=== PATIENT | male | born 1960 | race American Indian/Alaskan Native ===

== ENCOUNTER 2019-10-13 07:31 | Day surgery (SDC) | payer BC ==
[2019-10-13] MEDS ORDERED: LIDOCAINE (1%) 10 MG/1 ML VIAL 20 ML MDV ONE (07:45)
[2019-10-13] MEDS ORDERED: BUPIVACAINE/PF (0.25%) 2.5 MG/ML 30 ML VIAL INFILTRATI ONE (07:45)
[2019-10-13 08:09] VITALS: BP 161/102
--- NOTE | 2019-10-13 17:38 | Fluoroscopy Report ---
LEFT HIP 2 VIEWS [id number] INDICATION: Intraoperative Fluoroscopy time: 29 seconds COMPARISON: None FINDINGS: 2 intraoperative C-arm views were obtained. Initially a needle is seen with tip appearing t o be just of the level of the narrowed hip joint projecting over the superior acetabular region and t he second image shows a needle projecting over the lateral aspect of the ischium medial to the acetab ulum. Signer Name: Alcon Lam MD Signed: 10/13/2019 5:34 PM Workstation Name: [id number]
--- NOTE | 2019-10-13 22:48 | Procedure Note ---
Date of procedure: 10/13/19 Pre-op diagnosis: Left hip pain Post-op diagnosis: same Procedure: [Left] femoral and obturator nerve block hip joint Procedure The patient was brought to the OR placed on the or table in the supine position next C-arm fluoroscopy was used to establish landmarks around the hip joint following this the [left] hip and groin area was prepped and draped in a sterile manner a timeout procedure was done to identify the patient and correct operative site. Using the 21-gauge spinal needle a 0 fluoroscopy the anterior lateral portion of the acetabular rim was identified the spinal needle was placed up against the anterior border and 2% Marcaine was injected in the area of the femoral nerve articular branches. Following this a second spinal needle was then placed along the area corresponding to the Ischium on C-arm this area was anesthetized with lidocaine followed by insertion of the 21-gauge spinal needle and it was advanced just lateral to the teardrop on the inferior rim of the acetabulum ball was palpated as well The 2% Marcaine was injected into this location to anesthetize the obturator nerve the spinal needle was then removed pressure was applied over the puncture wound was followed by placement of 2 Band-Aids. The patient tolerated the procedure he was then taken back to the preop holding area where he was discharged to home Anesthesia: local Surgeon: ADORE CABRAL Estimated blood loss: minimal Pathology: none Condition: stable Disposition: observation
== END 2019-10-13 09:40 | disposition home or self-care (01) ==
LOC: OR 07:31
PROVIDERS: ATTEND Orthopaedic Surgery
DX: M25.552 Pain in left hip (principal); Z88.8 Allergy status to other drugs, medicaments and biological substances; Z79.84 Long term (current) use of oral hypoglycemic drugs; Z79.899 Other long term (current) drug therapy; E78.00 Pure hypercholesterolemia, unspecified; I10 Essential (primary) hypertension; Z86.718 Personal history of other venous thrombosis and embolism; K21.9 Gastro-esophageal reflux disease without esophagitis; M19.90 Unspecified osteoarthritis, unspecified site; Z96.653 Presence of artificial knee joint, bilateral; F32.9 Major depressive disorder, single episode, unspecified; Z98.890 Other specified postprocedural states
CPT/HCPCS: 77002; 82962

== ENCOUNTER 2021-02-25 15:33 | Outpatient (CLI) | payer BC ==
--- NOTE | 2021-02-25 16:40 | XRay Report ---
Left knee 2 views INDICATION: Knee pain FINDINGS: Tricompartmental degenerative change with joint space narrowing most significant in the med ial compartment and patellofemoral joint. No acute fracture dislocation. Pelvis and left hip 2 views INDICATION: Pain COMPARISON: February 28, 2020 FINDINGS: Advanced degenerative change in the left hip. There is complete loss of the superior joint space with sclerosis of the subchondral region left femoral head with mild flattening of the femoral head. 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 Signer Name: Tanner Jackson MD Signed: 02/25/2021 4:36 PM Workstation Name: [id number]
== END 2021-02-25 15:34 | disposition home or self-care (01) ==
LOC: XRAY 15:33
PROVIDERS: ATTEND Orthopaedic Surgery
DX: M17.12 Unilateral primary osteoarthritis, left knee (principal); M16.12 Unilateral primary osteoarthritis, left hip